=== PATIENT | male | born 1970 | race African-American/Black ===

== ENCOUNTER 2017-07-04 04:32 | Inpatient (IN) ==
[2017-07-04] MEDS ORDERED: LORazepam 2 MG/1 ML VIAL IV STA (05:12)
[2017-07-04] MEDS ORDERED: LORazepam 2 MG/1 ML VIAL ONE ×2 (05:15→12:28)
[2017-07-04] MEDS ORDERED: PROPOFOL 1,000 MG/100 ML BOTTLE IV ONE (05:19)
[2017-07-04] MEDS ORDERED: ETOMIDATE 20 MG/10 ML VIAL IV STA (05:23)
[2017-07-04] MEDS ORDERED: SUCCINYLCHOLINE 200 MG/10 ML VIAL IV STA ×2 (05:23→05:29)
[2017-07-04] MEDS ORDERED: SUCCINYLCHOLINE 200 MG/10 ML VIAL ONE (05:32)
[2017-07-04] MEDS ORDERED: ETOMIDATE 20 MG/10 ML VIAL IV ONE (05:32)
[2017-07-04] MEDS ORDERED: VECURONIUM 10 MG VIAL IV ONE (05:46)
[2017-07-04 05:52] LABS: ABG Base Excess -20.1 MMOL/L (-2.5-2.5); ABG HCO3 10.5 MMOL/L (20-26); ABG PCO2 37.7 MM HG (35-48); ABG TCO2 9.8 MMOL/L (23-27)
[2017-07-04 05:54] LABS: Basophils # 0.1 10*3/uL (0.0-0.2); Basophils % 0.8 % (0.0-0.8); Eosinophils # 0.2 10*3/uL (0.0-0.87); Eosinophils % 0.9 % (0.00-10.9); Hematocrit 47.2 VOL% (42.0-52.0); Hemoglobin 15.7 GM/DL (14.0-18.0); Immature Granulocytes % 7.2 %; Immature Granulocytes Absolute 1.23 #; Lymphocytes # 6.3 10*3/uL (1.4-4.0); Lymphocytes % 36.8 % (21.2-54.2); Mean Corpuscular HGB Conc 33.3 GM/DL (32-36); Mean Corpuscular Hemoglobin 30 PG (27-34); Mean Corpuscular Volume 89.1 FL (87-102); Monocytes # 0.3 10*3/uL (0.11-0.8); Monocytes % 1.5 % (1.7-12.7); Neutrophils % 52.8 % (38.7-73.9); Platelet Count 182 T/CUMM (130-400)
[2017-07-04 05:55] LABS: ABG PH 7.061 (7.35-7.45)
[2017-07-04] MEDS: PROPOFOL 1,000 MG/100 ML BOTTLE IV SCH ×2 (05:59→20:28)
[2017-07-04] MEDS ORDERED: PROPOFOL 1,000 MG/100 ML BOTTLE IV SCH ×2 (06:00→07:30)
[2017-07-04 06:05] LABS: Alanine Aminotransferase 142 U/L (16-61); Albumin 4.1 G/DL (3.4-5.0); Alkaline Phosphatase 155 U/L (45-117); Aspartate Amino Transferase 213 U/L (0-37); Bilirubin,Total < 0.39 MG/DL (0.2-1.0); Blood Urea Nitrogen 18 MG/DL (7-18); Calcium 8.9 MG/DL (8.5-10.1); Glucose 205 MG/DL (74-106); Osmolality,Calculated 275.2 MOS/KG (273-304); Sodium 134 MMOL/L (136-145); Total Protein 8.1 G/DL (6.4-8.3)
[2017-07-04 06:12] LABS: Potassium 6.1 MMOL/L (3.5-5.1)
[2017-07-04] MEDS ORDERED: DEXTROSE 50% 25 GM/50 ML VIAL IV STA (06:19)
[2017-07-04] MEDS ORDERED: SODIUM BICARBONATE 50 MEQ/50 ML VIAL IV STA (06:20)
[2017-07-04] MEDS ORDERED: INSULIN REGULAR 100 UNIT/ML IV STA (06:20)
[2017-07-04 06:22] LABS: Band Neutrophils 3 % (0-10); Eosinophils 2 % (0-10); Lymphocytes 34 % (20-55); Segmented Neutrophils 56 % (50-85); Total Cells Counted 100
[2017-07-04] MEDS ORDERED: SODIUM POLYSTYRENE SULFATE 15 GM/60 ML BOTTLE PO STA (06:22)
[2017-07-04 06:23] LABS: Burr Cells Slight; Giant Platelets Few; Hypochromasia Slight; Platelet Estimate Normal
[2017-07-04] MEDS ORDERED: SODIUM BICARBONATE 50 MEQ/50 ML SYRINGE IV ONE (06:35)
[2017-07-04] MEDS ORDERED: SODIUM POLYSTYRENE SULFATE 15 GM/60 ML BOTTLE ONE (06:35)
[2017-07-04] MEDS ORDERED: DEXTROSE 50% 25 GM/50 ML SYRINGE IV ONE (06:35)
[2017-07-04] MEDS ORDERED: INSULIN REGULAR 100 UNIT/ML ONE (06:38)
[2017-07-04] MEDS ORDERED: ALBUTEROL 2.5 MG/3 ML NEB RESP TX PRN (07:10)
[2017-07-04] MEDS ORDERED: SODIUM BICARBONATE 50 MEQ/50 ML VIAL IV ONE (07:23)
[2017-07-04] MEDS ORDERED: DEXTROSE 5% NACL 0.45% 1,000 ML IV SCH (07:30)
[2017-07-04 07:50] LABS: ABG HCO3 15.5 MMOL/L (20-26); ABG PCO2 40.4 MM HG (35-48); ABG TCO2 13.8 MMOL/L (23-27)
[2017-07-04 07:53] LABS: ABG PH 7.209 (7.35-7.45)
[2017-07-04] MEDS ORDERED: CALCIUM GLUCONATE 1,000 MG in SODIUM CHLORIDE 0.9% 50 ML IV ONE (08:00)
[2017-07-04 08:14] LABS: Lactic Acid 7.6 MMOL/L (0.4-2.0)
[2017-07-04 08:16] LABS: Amorphous Crystals,Urine Occasional /HPF (Few); Apearance,Urine Slightly Hazy (Clear); Bacteria,Urine Occasional /HPF (Few); Bilirubin,Urine Negative (Negative); Blood, Urine Large mg/dL (Negative); Glucose,Urine (UA) 50 mg/dL (Negative); Hyaline Casts,Urine 2 /LPF (0-3); Ketones,Urine Negative (Negative); Mucus,Urine Occasional /LPF (Occasional); Nitrite,Urine Negative (Negative); Protein,Urine 100 MG/DL; RBC,Urine 10 /HPF (0-4); Squamous Epithelial Cell,Urine Occasional /HPF (0-10); Urine Color Amber (Yellow); Urine Specific Gravity 1.009 (1.001-1.035); Urine Urobilinogen < 2.0 EU/DL (0.2-1.0); WBC,Urine 16 /HPF (0-6)
[2017-07-04] MEDS: ENOXAPARIN 40 MG/0.4 ML SYRINGE SUBCUT SCH (08:17)
[2017-07-04] MEDS: FAMOTIDINE 20 MG/2 ML VIAL IV SCH ×2 (08:17→20:11)
[2017-07-04 08:36] LABS: Barbiturates Screen,Urine Negative (Negative); Benzodiazepines Screen,Urine Negative (Negative); Cannabinoid Screen,Urine Positive (Negative); Opiate Screen,Urine Negative (Negative); Phencyclidine Screen,Urine Negative (Negative)
[2017-07-04] MEDS: LORazepam INJ 40 MG in DEXTROSE 5% 30 ML IV SCH (08:50)
[2017-07-04] MEDS ORDERED: SODIUM CHLORIDE 0.9% 1,650 ML IV ONE (11:12)
[2017-07-04 11:39] LABS: Albumin 3.9 G/DL (3.4-5.0); Bilirubin,Total 0.6 MG/DL (0.2-1.0); Calcium 7.2 MG/DL (8.5-10.1); Osmolality,Calculated 284.4 MOS/KG (273-304); Potassium 4.7 MMOL/L (3.5-5.1); Total Protein 7.7 G/DL (6.4-8.3)
[2017-07-04] MEDS: VALPROIC ACID INJ 1,000 MG in SODIUM CHLORIDE 0.9% 100 ML IV SCH (12:16)
[2017-07-04] MEDS ORDERED: LORazepam 2 MG/1 ML VIAL IV ONE (12:25)
[2017-07-04] MEDS: ALBUTEROL/IPRATROPIUM 3 ML NEB RESP TX SCH ×2 (12:32→20:17)
[2017-07-04] MEDS: PIPERACILLIN/TAZOBACTAM 3,375 MG in SODIUM CHLORIDE 0.9% 100 ML IV SCH ×2 (13:48→20:15)
[2017-07-04] MEDS: SODIUM BICARB INJ 100 MEQ in DEXTROSE 5% 1,000 ML IV SCH (15:10)
[2017-07-04 15:52] LABS: ABG HCO3 13.3 MMOL/L (20-26); ABG Oxygen Saturation 99.5 % (95-100); ABG PCO2 33.1 MM HG (35-48); ABG PH 7.223 (7.35-7.45); ABG PO2 364.3 MM HG (80-95); ABG TCO2 14.4 MMOL/L (23-27); Allen Test Positive; Pt O2 Delivery Device Ventilator
[2017-07-04 17:24] LABS: Basophils % 0.2 % (0.0-0.8); Eosinophils % 0.1 % (0.00-10.9); Hematocrit 48.4 VOL% (42.0-52.0); Hemoglobin 17.3 GM/DL (14.0-18.0); Immature Granulocytes % 0.5 %; Immature Granulocytes Absolute 0.08 #; Lymphocytes # 1.9 10*3/uL (1.4-4.0); Lymphocytes % 11.5 % (21.2-54.2); Mean Corpuscular HGB Conc 35.7 GM/DL (32-36); Mean Corpuscular Hemoglobin 30 PG (27-34); Mean Corpuscular Volume 83.2 FL (87-102); Mean Platelet Volume 10.8 FL (9.6-12.0); Monocytes % 5.9 % (1.7-12.7); Neutrophils # 13.5 10*3/uL (1.4-7.4); Neutrophils % 81.8 % (38.7-73.9); Platelet Count 163 T/CUMM (130-400); Red Blood Count 5.82 MC/CUMM (3.8-5.5); Red Cell Distribution Width 14.3 % (9.3-17.3); White Blood Count 16.5 T/CUMM (4-12)
[2017-07-04 17:44] LABS: Band Neutrophils 8 % (0-10); Lymphocytes 18 % (20-55); Platelet Estimate Adequate; Segmented Neutrophils 69 % (50-85); Total Cells Counted 100
[2017-07-04 17:45] LABS: Burr Cells Slight; Poikilocytosis Slight
[2017-07-04] MEDS ORDERED: DEXTROSE 50% 25 GM/50 ML VIAL IV PRN (20:04)
[2017-07-04] MEDS ORDERED: GLUCAGON 1 MG VIAL IM PRN (20:04)
[2017-07-04] MEDS ORDERED: SODIUM CHLORIDE 0.9% 500 ML IV ONE (22:25)
[2017-07-05] MEDS: INSULIN REGULAR 100 UNIT/ML SUBCUT SCH ×4 (00:23→17:36)
[2017-07-05] MEDS: VALPROIC ACID INJ 1,000 MG in SODIUM CHLORIDE 0.9% 100 ML IV SCH ×2 (00:24→12:26)
[2017-07-05] MEDS: ALBUTEROL/IPRATROPIUM 3 ML NEB RESP TX SCH ×4 (00:35→19:48)
[2017-07-05] MEDS: SODIUM BICARB INJ 100 MEQ in DEXTROSE 5% 1,000 ML IV SCH (02:03)
[2017-07-05 03:25] LABS: ABG Base Excess -10.2 MMOL/L (-2.5-2.5); ABG HCO3 13.3 MMOL/L (20-26); ABG Oxygen Saturation 98.8 % (95-100); ABG PCO2 24.6 MM HG (35-48); ABG PO2 141.1 MM HG (80-95); Allen Test Positive; Pt O2 Delivery Device Ventilator
[2017-07-05] MEDS: PIPERACILLIN/TAZOBACTAM 3,375 MG in SODIUM CHLORIDE 0.9% 100 ML IV SCH ×3 (04:02→22:03)
[2017-07-05 04:36] LABS: Basophils # 0.1 10*3/uL (0.0-0.2); Basophils % 0.5 % (0.0-0.8); Eosinophils % 0.1 % (0.00-10.9); Hematocrit 42.6 VOL% (42.0-52.0); Hemoglobin 15.5 GM/DL (14.0-18.0); Immature Granulocytes % 0.2 %; Immature Granulocytes Absolute 0.03 #; Lymphocytes # 1.5 10*3/uL (1.4-4.0); Lymphocytes % 10.3 % (21.2-54.2); Mean Corpuscular HGB Conc 36.4 GM/DL (32-36); Mean Corpuscular Hemoglobin 30 PG (27-34); Mean Corpuscular Volume 82.6 FL (87-102); Mean Platelet Volume 11.3 FL (9.6-12.0); Monocytes # 1.1 10*3/uL (0.11-0.8); Monocytes % 7.4 % (1.7-12.7); Neutrophils # 11.5 10*3/uL (1.4-7.4); Neutrophils % 81.5 % (38.7-73.9); Platelet Count 145 T/CUMM (130-400); Red Blood Count 5.16 MC/CUMM (3.8-5.5); Red Cell Distribution Width 14.4 % (9.3-17.3); White Blood Count 14.1 T/CUMM (4-12)
[2017-07-05 04:54] LABS: Lactic Acid 5.6 MMOL/L (0.4-2.0)
[2017-07-05 07:02] LABS: Hepatitis A Ab IgM Quant 0.12 Index; Hepatitis A Ab IgM Result Negative (Negative); Hepatitis B Core IgM Quant 0.15 Index; Hepatitis B Core IgM Result Negative (Negative); Hepatitis B Surface Ag Quant 0.78 Index; Hepatitis B Surface Ag Result Negative (Negative); Hepatitis C Virus Ab Result Negative (Negative)
[2017-07-05] MEDS: ENOXAPARIN 40 MG/0.4 ML SYRINGE SUBCUT SCH (08:50)
[2017-07-05] MEDS: FAMOTIDINE 20 MG/2 ML VIAL IV SCH (08:50)
[2017-07-05 10:11] LABS: Albumin 2.4 G/DL (3.4-5.0); Bilirubin,Total 0.8 MG/DL (0.2-1.0); Calcium 6.1 MG/DL (8.5-10.1); Magnesium 2.6 MG/DL (1.8-2.4); Osmolality,Calculated 291.4 MOS/KG (273-304); Potassium 5.7 MMOL/L (3.5-5.1)
[2017-07-05] MEDS ORDERED: SODIUM POLYSTYRENE SULFATE 15 GM/60 ML BOTTLE PER TUBE PRN (12:00)
[2017-07-05] MEDS: SODIUM BICARB INJ 150 MEQ in DEXTROSE 5% 1,000 ML IV SCH (13:33)
[2017-07-05 14:14] LABS: INR 1.4; PT Patient Result 14.3 SECS
[2017-07-05 14:36] LABS: Acetaminophen 7.1 UG/ML (10-30); Salicylate < 2.8 MG/DL (2.8-20)
[2017-07-05] MEDS: PANTOPRAZOLE 40 MG VIAL IV SCH (22:03)
[2017-07-06] MEDS: VALPROIC ACID INJ 1,000 MG in SODIUM CHLORIDE 0.9% 100 ML IV SCH ×2 (01:14→12:32)
[2017-07-06] MEDS: INSULIN REGULAR 100 UNIT/ML SUBCUT SCH ×5 (01:14→23:55)
[2017-07-06] MEDS: ALBUTEROL/IPRATROPIUM 3 ML NEB RESP TX SCH ×4 (01:15→19:25)
[2017-07-06] MEDS: SODIUM BICARB INJ 150 MEQ in DEXTROSE 5% 1,000 ML IV SCH ×2 (02:01→13:41)
[2017-07-06] MEDS: LORazepam INJ 40 MG in DEXTROSE 5% 30 ML IV SCH ×2 (02:05→11:47)
[2017-07-06 03:31] LABS: ABG Base Excess -3.3 MMOL/L (-2.5-2.5); ABG HCO3 19.8 MMOL/L (20-26); ABG PH 7.437 (7.35-7.45); ABG PO2 235.5 MM HG (80-95); ABG TCO2 20.7 MMOL/L (23-27); Allen Test Positive; Pt O2 Delivery Device Ventilator
[2017-07-06 04:05] LABS: Basophils % 0.3 % (0.0-0.8); Eosinophils % 0.1 % (0.00-10.9); Hematocrit 32.6 VOL% (42.0-52.0); Hemoglobin 12.1 GM/DL (14.0-18.0); Immature Granulocytes % 0.9 %; Lymphocytes # 0.8 10*3/uL (1.4-4.0); Lymphocytes % 7.7 % (21.2-54.2); Mean Corpuscular HGB Conc 37.1 GM/DL (32-36); Mean Corpuscular Hemoglobin 30 PG (27-34); Mean Corpuscular Volume 80.1 FL (87-102); Mean Platelet Volume 10.7 FL (9.6-12.0); Monocytes # 0.8 10*3/uL (0.11-0.8); Monocytes % 7.2 % (1.7-12.7); Neutrophils % 83.8 % (38.7-73.9); Platelet Count 102 T/CUMM (130-400); Red Blood Count 4.07 MC/CUMM (3.8-5.5); Red Cell Distribution Width 13.7 % (9.3-17.3); White Blood Count 10.8 T/CUMM (4-12)
[2017-07-06 04:50] LABS: Alanine Aminotransferase 724 U/L (16-61); Alkaline Phosphatase 74 U/L (45-117); Aspartate Amino Transferase 2280 U/L (0-37); Bilirubin,Indirect 0.3 MG/DL (0.0-1.0); Bilirubin,Total < 0.39 MG/DL (0.2-1.0); Total Protein 4.4 G/DL (6.4-8.3)
[2017-07-06 04:51] LABS: Band Neutrophils 31 % (0-10); Hypochromasia 2+; Lymphocytes 10 % (20-55); Metamyelocytes 4 %; Myelocytes 2 %; Platelet Estimate Decreased; Segmented Neutrophils 44 % (50-85); Total Cells Counted 100
[2017-07-06 05:09] LABS: Bilirubin,Total 0.4 MG/DL (0.2-1.0); Magnesium 2.2 MG/DL (1.8-2.4); Osmolality,Calculated 295.5 MOS/KG (273-304); Potassium 4.6 MMOL/L (3.5-5.1); Total Protein 4.5 G/DL (6.4-8.3)
[2017-07-06 05:11] LABS: Calcium 5.5 MG/DL (8.5-10.1)
[2017-07-06 05:53] LABS: INR 1.3; PT Patient Result 13.9 SECS
[2017-07-06 05:56] LABS: Lactic Acid 5.8 MMOL/L (0.4-2.0)
[2017-07-06] MEDS: PROPOFOL 1,000 MG/100 ML BOTTLE IV SCH ×2 (06:21→06:22)
[2017-07-06] MEDS: PIPERACILLIN/TAZOBACTAM 3,375 MG in SODIUM CHLORIDE 0.9% 100 ML IV SCH ×3 (06:28→23:39)
[2017-07-06] MEDS: PANTOPRAZOLE 40 MG VIAL IV SCH ×2 (08:47→20:07)
[2017-07-06] MEDS: ENOXAPARIN 40 MG/0.4 ML SYRINGE SUBCUT SCH (08:47)
[2017-07-06] MEDS ORDERED: CALCIUM GLUCONATE 2,000 MG in SODIUM CHLORIDE 0.9% 100 ML IV ONE (10:00)
[2017-07-06 11:06] LABS: Amorphous Crystals,Urine Occasional /HPF (Few); Apearance,Urine CLOUDY (Clear); Bilirubin,Urine Negative (Negative); Blood, Urine Large mg/dL (Negative); Glucose,Urine (UA) 50 mg/dL (Negative); Ketones,Urine Negative (Negative); Mucus,Urine Occasional /LPF (Occasional); Nitrite,Urine Negative (Negative); Protein,Urine 100 MG/DL; RBC,Urine 583 /HPF (0-4); Urine Color Red (Yellow); Urine Specific Gravity 1.012 (1.001-1.035); Urine Urobilinogen < 2.0 EU/DL (0.2-1.0); WBC,Urine 6 /HPF (0-6)
[2017-07-06] MEDS ORDERED: SODIUM CHLORIDE 0.9% 1,000 ML IV ONE ×2 (13:44→15:05)
[2017-07-06] MEDS: levETIRAcetam INJ 500 MG in SODIUM CHLORIDE 0.9% 50 ML IV SCH ×2 (15:10→23:37)
[2017-07-07] MEDS: ALBUTEROL/IPRATROPIUM 3 ML NEB RESP TX SCH ×4 (00:39→19:39)
[2017-07-07] MEDS: SODIUM BICARB INJ 150 MEQ in DEXTROSE 5% 1,000 ML IV SCH ×3 (01:21→22:49)
[2017-07-07 03:41] LABS: Allen Test Positive; Pt O2 Delivery Device Ventilator
[2017-07-07 03:42] LABS: ABG Base Excess 2.7 MMOL/L (-2.5-2.5); ABG Oxygen Saturation 98.6 % (95-100); ABG PCO2 35.2 MM HG (35-48); ABG PH 7.486 (7.35-7.45); ABG TCO2 27.1 MMOL/L (23-27)
[2017-07-07 05:38] LABS: Basophils % 0.4 % (0.0-0.8); Eosinophils # 0.1 10*3/uL (0.0-0.87); Eosinophils % 0.5 % (0.00-10.9); Hematocrit 25.4 VOL% (42.0-52.0); Hemoglobin 9.5 GM/DL (14.0-18.0); Immature Granulocytes % 0.7 %; Immature Granulocytes Absolute 0.08 #; Lymphocytes # 0.8 10*3/uL (1.4-4.0); Lymphocytes % 6.8 % (21.2-54.2); Mean Corpuscular HGB Conc 37.4 GM/DL (32-36); Mean Corpuscular Hemoglobin 30 PG (27-34); Mean Corpuscular Volume 79.4 FL (87-102); Mean Platelet Volume 11.7 FL (9.6-12.0); Monocytes # 0.8 10*3/uL (0.11-0.8); Neutrophils # 9.4 10*3/uL (1.4-7.4); Neutrophils % 84.6 % (38.7-73.9); Platelet Count 73 T/CUMM (130-400); Red Cell Distribution Width 13.3 % (9.3-17.3); White Blood Count 11.1 T/CUMM (4-12)
[2017-07-07 05:53] LABS: Lactic Acid 3.9 MMOL/L (0.4-2.0)
[2017-07-07] MEDS ORDERED: ceFAZolin 2,000 MG in PREMIX 1 EACH IV ONE (06:00)
[2017-07-07 06:15] LABS: Albumin 1.8 G/DL (3.4-5.0); Bilirubin,Total 0.6 MG/DL (0.2-1.0); Osmolality,Calculated 302.1 MOS/KG (273-304); Potassium 3.9 MMOL/L (3.5-5.1); Total Protein 3.9 G/DL (6.4-8.3)
[2017-07-07 06:19] LABS: Calcium 5.3 MG/DL (8.5-10.1)
[2017-07-07 06:35] LABS: Band Neutrophils 40 % (0-10); Hypochromasia Slight; Lymphocytes 12 % (20-55); Myelocytes 1 %; Platelet Estimate Decreased; Segmented Neutrophils 43 % (50-85); Total Cells Counted 100
[2017-07-07] MEDS: INSULIN REGULAR 100 UNIT/ML SUBCUT SCH ×3 (07:19→18:07)
[2017-07-07] MEDS: levETIRAcetam INJ 500 MG in SODIUM CHLORIDE 0.9% 50 ML IV SCH ×3 (07:27→22:23)
[2017-07-07] MEDS: PROPOFOL 1,000 MG/100 ML BOTTLE IV SCH ×2 (08:49→09:16)
[2017-07-07] MEDS: PANTOPRAZOLE 40 MG VIAL IV SCH ×2 (08:50→22:23)
[2017-07-07] MEDS: ENOXAPARIN 30 MG/0.3 ML SYRINGE SUBCUT SCH (08:55)
[2017-07-07] MEDS ORDERED: HEPARIN 1,000 UNIT/1 ML VIAL ONE (11:22)
[2017-07-07] MEDS: PIPERACILLIN/TAZOBACTAM 3,375 MG in SODIUM CHLORIDE 0.9% 100 ML IV SCH (11:30)
[2017-07-07] MEDS ORDERED: MIDAZOLAM 2 MG/2 ML VIAL ONE (13:04)
[2017-07-07] MEDS ORDERED: SEVOFLURANE 1 UNIT/15 MINUTE INH ONE (13:04)
[2017-07-07] MEDS ORDERED: HEPARIN 10,000 UNIT/10 ML VIAL IV SCH (15:30)
[2017-07-08] MEDS: PIPERACILLIN/TAZOBACTAM 3,375 MG in SODIUM CHLORIDE 0.9% 100 ML IV SCH ×2 (00:10→13:17)
[2017-07-08] MEDS: ALBUTEROL/IPRATROPIUM 3 ML NEB RESP TX SCH ×4 (00:35→19:15)
[2017-07-08] MEDS: PROPOFOL 1,000 MG/100 ML BOTTLE IV SCH (03:01)
[2017-07-08 04:42] LABS: Basophils % 0.2 % (0.0-0.8); Eosinophils % 0.4 % (0.00-10.9); Hematocrit 23.2 VOL% (42.0-52.0); Hemoglobin 8.5 GM/DL (14.0-18.0); Immature Granulocytes % 0.4 %; Immature Granulocytes Absolute 0.05 #; Lymphocytes # 0.6 10*3/uL (1.4-4.0); Lymphocytes % 5.5 % (21.2-54.2); Mean Corpuscular HGB Conc 36.6 GM/DL (32-36); Mean Corpuscular Hemoglobin 29 PG (27-34); Mean Corpuscular Volume 80.3 FL (87-102); Mean Platelet Volume 10.9 FL (9.6-12.0); Monocytes # 0.5 10*3/uL (0.11-0.8); Monocytes % 4.7 % (1.7-12.7); Neutrophils # 10.1 10*3/uL (1.4-7.4); Neutrophils % 88.8 % (38.7-73.9); Red Blood Count 2.89 MC/CUMM (3.8-5.5); Red Cell Distribution Width 13.4 % (9.3-17.3); White Blood Count 11.3 T/CUMM (4-12)
[2017-07-08 04:57] LABS: Platelet Count 60 T/CUMM (130-400)
[2017-07-08 05:23] LABS: Lactic Acid 2.8 MMOL/L (0.4-2.0)
[2017-07-08 05:37] LABS: Albumin 1.7 G/DL (3.4-5.0); Bilirubin,Total 0.6 MG/DL (0.2-1.0); Osmolality,Calculated 293.5 MOS/KG (273-304); Potassium 3.2 MMOL/L (3.5-5.1); Total Protein 4.1 G/DL (6.4-8.3)
[2017-07-08 05:40] LABS: Magnesium 2.1 MG/DL (1.8-2.4); Prealbumin 11.9 MG/DL (20-40)
[2017-07-08 05:48] LABS: Band Neutrophils 3 % (0-10); Eosinophils 2 % (0-10); Lymphocytes 6 % (20-55); Segmented Neutrophils 85 % (50-85); Total Cells Counted 100
[2017-07-08 05:49] LABS: Hypochromasia 1+; Microcytosis Slight; Platelet Estimate Decreased
[2017-07-08] MEDS ORDERED: SODIUM CHLORIDE 0.9% 250 ML IV PRN (06:16)
[2017-07-08 06:24] LABS: Calcium 5.5 MG/DL (8.5-10.1)
[2017-07-08] MEDS: INSULIN REGULAR 100 UNIT/ML SUBCUT SCH ×4 (06:40→19:36)
[2017-07-08 10:06] LABS: % Iron Saturation 23.1 % (18-50); Ferritin 365.7 ng/ml (26-388)
[2017-07-08] MEDS: levETIRAcetam INJ 500 MG in SODIUM CHLORIDE 0.9% 50 ML IV SCH ×2 (10:32→19:34)
[2017-07-08] MEDS: ENOXAPARIN 30 MG/0.3 ML SYRINGE SUBCUT SCH (10:32)
[2017-07-08] MEDS: PANTOPRAZOLE 40 MG VIAL IV SCH ×2 (10:33→22:08)
[2017-07-08] MEDS: SODIUM BICARB INJ 150 MEQ in DEXTROSE 5% 1,000 ML IV SCH (10:52)
[2017-07-08] MEDS ORDERED: LEVOFLOXACIN INJ 750 MG in PREMIX 1 EACH IV ONE (21:30)
[2017-07-09] MEDS: ALBUTEROL/IPRATROPIUM 3 ML NEB RESP TX SCH ×4 (00:53→19:48)
[2017-07-09] MEDS: levETIRAcetam INJ 500 MG in SODIUM CHLORIDE 0.9% 50 ML IV SCH ×3 (01:38→17:44)
[2017-07-09] MEDS: INSULIN REGULAR 100 UNIT/ML SUBCUT SCH ×5 (01:38→23:34)
[2017-07-09] MEDS: PIPERACILLIN/TAZOBACTAM 3,375 MG in SODIUM CHLORIDE 0.9% 100 ML IV SCH ×3 (01:39→23:31)
[2017-07-09 06:47] LABS: Basophils % 0.3 % (0.0-0.8); Eosinophils # 0.1 10*3/uL (0.0-0.87); Eosinophils % 0.8 % (0.00-10.9); Hematocrit 21.5 VOL% (42.0-52.0); Immature Granulocytes % 0.8 %; Immature Granulocytes Absolute 0.09 #; Lymphocytes # 0.6 10*3/uL (1.4-4.0); Lymphocytes % 5.3 % (21.2-54.2); Mean Corpuscular HGB Conc 36.7 GM/DL (32-36); Mean Corpuscular Hemoglobin 30 PG (27-34); Mean Corpuscular Volume 81.4 FL (87-102); Mean Platelet Volume 11.7 FL (9.6-12.0); Monocytes # 0.9 10*3/uL (0.11-0.8); Monocytes % 7.4 % (1.7-12.7); Neutrophils # 10.2 10*3/uL (1.4-7.4); Neutrophils % 85.4 % (38.7-73.9); Red Blood Count 2.64 MC/CUMM (3.8-5.5); Red Cell Distribution Width 13.3 % (9.3-17.3); White Blood Count 11.9 T/CUMM (4-12)
[2017-07-09 06:49] LABS: Hemoglobin 7.9 GM/DL (14.0-18.0); Platelet Count 60 T/CUMM (130-400)
[2017-07-09 07:03] LABS: Apearance,Urine CLOUDY (Clear); Bilirubin,Urine Negative (Negative); Blood, Urine Large mg/dL (Negative); Glucose,Urine (UA) 50 mg/dL (Negative); Ketones,Urine Negative (Negative); Nitrite,Urine Negative (Negative); Protein,Urine 100 MG/DL; RBC,Urine 2168 /HPF (0-4); Squamous Epithelial Cell,Urine Occasional /HPF (0-10); Urine Color Amber (Yellow); Urine Specific Gravity 1.009 (1.001-1.035); Urine Urobilinogen < 2.0 EU/DL (0.2-1.0); WBC,Urine 24 /HPF (0-6)
[2017-07-09 07:10] LABS: Lactic Acid 1.3 MMOL/L (0.4-2.0)
[2017-07-09 07:11] LABS: Anisocytosis 1+; Microcytosis 1+; Platelet Estimate Decreased
[2017-07-09] MEDS: PANTOPRAZOLE 40 MG VIAL IV SCH ×2 (08:41→20:21)
[2017-07-09] MEDS: ENOXAPARIN 30 MG/0.3 ML SYRINGE SUBCUT SCH (08:41)
[2017-07-09 08:59] LABS: Calcium 6.8 MG/DL (8.5-10.1); Osmolality,Calculated 284.8 MOS/KG (273-304); Potassium 3.3 MMOL/L (3.5-5.1)
[2017-07-10] MEDS: ALBUTEROL/IPRATROPIUM 3 ML NEB RESP TX SCH ×4 (00:59→20:00)
[2017-07-10] MEDS: levETIRAcetam INJ 500 MG in SODIUM CHLORIDE 0.9% 50 ML IV SCH (02:26)
[2017-07-10 06:14] LABS: Basophils % 0.3 % (0.0-0.8); Eosinophils # 0.2 10*3/uL (0.0-0.87); Eosinophils % 1.7 % (0.00-10.9); Hematocrit 22.5 VOL% (42.0-52.0); Hemoglobin 8.3 GM/DL (14.0-18.0); Immature Granulocytes % 1.4 %; Immature Granulocytes Absolute 0.17 #; Lymphocytes # 1.2 10*3/uL (1.4-4.0); Lymphocytes % 10.5 % (21.2-54.2); Mean Corpuscular HGB Conc 36.9 GM/DL (32-36); Mean Corpuscular Hemoglobin 30 PG (27-34); Mean Corpuscular Volume 80.9 FL (87-102); Mean Platelet Volume 11.5 FL (9.6-12.0); Monocytes # 0.9 10*3/uL (0.11-0.8); Neutrophils # 9.2 10*3/uL (1.4-7.4); Neutrophils % 78.1 % (38.7-73.9); Platelet Count 78 T/CUMM (130-400); Red Blood Count 2.78 MC/CUMM (3.8-5.5); White Blood Count 11.8 T/CUMM (4-12)
[2017-07-10] MEDS: INSULIN REGULAR 100 UNIT/ML SUBCUT SCH ×3 (06:39→18:54)
[2017-07-10 06:41] LABS: Giant Platelets Few; Hypochromasia 1+; Platelet Estimate Decreased
[2017-07-10 06:42] LABS: Microcytosis 1+
[2017-07-10 06:55] LABS: Albumin 1.7 G/DL (3.4-5.0); Bilirubin,Direct 0.16 MG/DL (0.0-0.20); Bilirubin,Indirect 0.3 MG/DL (0.0-1.0); Bilirubin,Total 0.5 MG/DL (0.2-1.0); Total Protein 4.3 G/DL (6.4-8.3)
[2017-07-10] MEDS: ENOXAPARIN 30 MG/0.3 ML SYRINGE SUBCUT SCH (08:54)
[2017-07-10] MEDS: PANTOPRAZOLE 40 MG VIAL IV SCH ×2 (08:59→21:00)
[2017-07-10] MEDS: PIPERACILLIN/TAZOBACTAM 3,375 MG in SODIUM CHLORIDE 0.9% 100 ML IV SCH (15:48)
[2017-07-10] MEDS: ONDANSETRON 4 MG/2 ML VIAL IV PRN (21:00)
[2017-07-10] MEDS ORDERED: LEVOFLOXACIN INJ 500 MG in PREMIX 1 EACH IV SCH (21:00)
[2017-07-10] MEDS: levETIRAcetam 500 MG TABLET PO SCH (21:01)
[2017-07-11] MEDS: INSULIN REGULAR 100 UNIT/ML SUBCUT SCH ×4 (00:03→18:49)
[2017-07-11] MEDS: ALBUTEROL/IPRATROPIUM 3 ML NEB RESP TX SCH ×4 (00:19→19:05)
[2017-07-11 06:05] LABS: Basophils # 0.1 10*3/uL (0.0-0.2); Basophils % 0.4 % (0.0-0.8); Eosinophils # 0.2 10*3/uL (0.0-0.87); Eosinophils % 1.6 % (0.00-10.9); Hematocrit 29.4 VOL% (42.0-52.0); Hemoglobin 10.7 GM/DL (14.0-18.0); Immature Granulocytes % 0.8 %; Immature Granulocytes Absolute 0.09 #; Lymphocytes # 1.2 10*3/uL (1.4-4.0); Lymphocytes % 10.9 % (21.2-54.2); Mean Corpuscular HGB Conc 36.4 GM/DL (32-36); Mean Corpuscular Hemoglobin 29 PG (27-34); Mean Corpuscular Volume 80.3 FL (87-102); Monocytes # 1.2 10*3/uL (0.11-0.8); Monocytes % 10.8 % (1.7-12.7); Neutrophils # 8.4 10*3/uL (1.4-7.4); Neutrophils % 75.5 % (38.7-73.9); Platelet Count 107 T/CUMM (130-400); Red Blood Count 3.66 MC/CUMM (3.8-5.5); White Blood Count 11.2 T/CUMM (4-12)
[2017-07-11 06:40] LABS: Band Neutrophils 1 % (0-10); Eosinophils 5 % (0-10); Lymphocytes 11 % (20-55); Segmented Neutrophils 69 % (50-85); Total Cells Counted 100
[2017-07-11 06:41] LABS: Giant Platelets Few; Hypochromasia 1+; Microcytosis Slight; Ovalocytes Slight; Platelet Estimate Decreased
[2017-07-11 07:26] LABS: Albumin 1.8 G/DL (3.4-5.0); Bilirubin,Direct 0.15 MG/DL (0.0-0.20); Bilirubin,Indirect 0.4 MG/DL (0.0-1.0); Bilirubin,Total 0.5 MG/DL (0.2-1.0); Calcium 7.9 MG/DL (8.5-10.1); Magnesium 1.8 MG/DL (1.8-2.4); Osmolality,Calculated 284.8 MOS/KG (273-304); Potassium 3.3 MMOL/L (3.5-5.1); Total Protein 4.5 G/DL (6.4-8.3)
[2017-07-11] MEDS: levETIRAcetam 500 MG TABLET PO SCH ×2 (10:05→21:09)
[2017-07-11] MEDS: PANTOPRAZOLE 40 MG VIAL IV SCH ×2 (10:05→21:09)
[2017-07-11] MEDS: ENOXAPARIN 30 MG/0.3 ML SYRINGE SUBCUT SCH (10:05)
[2017-07-11] MEDS: PIPERACILLIN/TAZOBACTAM 3,375 MG in SODIUM CHLORIDE 0.9% 100 ML IV SCH (10:11)
[2017-07-12] MEDS: ALBUTEROL/IPRATROPIUM 3 ML NEB RESP TX SCH ×4 (00:20→19:37)
[2017-07-12] MEDS: INSULIN REGULAR 100 UNIT/ML SUBCUT SCH ×4 (01:58→19:43)
[2017-07-12 05:39] LABS: Basophils % 0.3 % (0.0-0.8); Eosinophils # 0.2 10*3/uL (0.0-0.87); Eosinophils % 1.1 % (0.00-10.9); Hematocrit 26.7 VOL% (42.0-52.0); Hemoglobin 9.5 GM/DL (14.0-18.0); Immature Granulocytes % 0.9 %; Immature Granulocytes Absolute 0.13 #; Lymphocytes # 1.5 10*3/uL (1.4-4.0); Lymphocytes % 10.6 % (21.2-54.2); Mean Corpuscular HGB Conc 35.6 GM/DL (32-36); Mean Corpuscular Hemoglobin 29 PG (27-34); Mean Corpuscular Volume 80.9 FL (87-102); Mean Platelet Volume 10.3 FL (9.6-12.0); Monocytes # 1.5 10*3/uL (0.11-0.8); Monocytes % 10.6 % (1.7-12.7); Neutrophils # 10.5 10*3/uL (1.4-7.4); Neutrophils % 76.5 % (38.7-73.9); Platelet Count 142 T/CUMM (130-400); Red Cell Distribution Width 12.9 % (9.3-17.3); White Blood Count 13.8 T/CUMM (4-12)
[2017-07-12 05:58] LABS: Hypochromasia 1+; Microcytosis Slight; Platelet Estimate Normal
[2017-07-12 06:18] LABS: Calcium 8.3 MG/DL (8.5-10.1); Magnesium 1.7 MG/DL (1.8-2.4); Osmolality,Calculated 292.8 MOS/KG (273-304); Potassium 3.4 MMOL/L (3.5-5.1)
[2017-07-12 06:43] LABS: Albumin 1.7 G/DL (3.4-5.0); Bilirubin,Direct 0.14 MG/DL (0.0-0.20); Bilirubin,Indirect 0.6 MG/DL (0.0-1.0); Bilirubin,Total 0.7 MG/DL (0.2-1.0); Total Protein 4.1 G/DL (6.4-8.3)
[2017-07-12] MEDS: PANTOPRAZOLE 40 MG VIAL IV SCH ×2 (08:31→22:20)
[2017-07-12] MEDS: levETIRAcetam 500 MG TABLET PO SCH ×2 (08:32→22:15)
[2017-07-12] MEDS ORDERED: HYDROCORTISONE 2.5% RECTAL CREAM 30 GM TUBE TOP PRN (08:41)
[2017-07-12] MEDS ORDERED: WITCH HAZEL PADS 100/JAR TOP PRN (08:59)
[2017-07-12] MEDS: ENOXAPARIN 30 MG/0.3 ML SYRINGE SUBCUT SCH (09:02)
[2017-07-12] MEDS: traZODone 50 MG TABLET PO SCH (22:16)
[2017-07-13] MEDS: ALBUTEROL/IPRATROPIUM 3 ML NEB RESP TX SCH ×4 (00:38→19:29)
[2017-07-13] MEDS: INSULIN REGULAR 100 UNIT/ML SUBCUT SCH ×3 (02:09→12:11)
[2017-07-13 06:22] LABS: Basophils % 0.2 % (0.0-0.8); Eosinophils # 0.2 10*3/uL (0.0-0.87); Eosinophils % 1.2 % (0.00-10.9); Hematocrit 25.2 VOL% (42.0-52.0); Hemoglobin 8.9 GM/DL (14.0-18.0); Immature Granulocytes % 1.4 %; Immature Granulocytes Absolute 0.19 #; Lymphocytes # 1.7 10*3/uL (1.4-4.0); Lymphocytes % 12.3 % (21.2-54.2); Mean Corpuscular HGB Conc 35.3 GM/DL (32-36); Mean Corpuscular Hemoglobin 29 PG (27-34); Mean Corpuscular Volume 80.8 FL (87-102); Mean Platelet Volume 9.9 FL (9.6-12.0); Monocytes # 1.9 10*3/uL (0.11-0.8); Monocytes % 13.9 % (1.7-12.7); Neutrophils # 9.9 10*3/uL (1.4-7.4); Platelet Count 190 T/CUMM (130-400); Red Blood Count 3.12 MC/CUMM (3.8-5.5); Red Cell Distribution Width 13.2 % (9.3-17.3); White Blood Count 13.9 T/CUMM (4-12)
[2017-07-13 07:04] LABS: Eosinophils 1 % (0-10); Hypochromasia 1+; Lymphocytes 11 % (20-55); Microcytosis Slight; Platelet Estimate Normal; Segmented Neutrophils 77 % (50-85); Total Cells Counted 100
[2017-07-13 07:06] LABS: Albumin 1.9 G/DL (3.4-5.0); Bilirubin,Direct 0.15 MG/DL (0.0-0.20); Bilirubin,Indirect 0.7 MG/DL (0.0-1.0); Bilirubin,Total 0.8 MG/DL (0.2-1.0); Calcium 8.3 MG/DL (8.5-10.1); Magnesium 2.2 MG/DL (1.8-2.4); Potassium 3.5 MMOL/L (3.5-5.1); Total Protein 4.7 G/DL (6.4-8.3)
[2017-07-13] MEDS: levETIRAcetam 500 MG TABLET PO SCH (08:39)
[2017-07-13] MEDS: ENOXAPARIN 30 MG/0.3 ML SYRINGE SUBCUT SCH (08:39)
[2017-07-13] MEDS: PANTOPRAZOLE 40 MG VIAL IV SCH ×2 (08:40→21:28)
[2017-07-13] MEDS: traZODone 50 MG TABLET PO SCH (21:28)
[2017-07-14] MEDS: ALBUTEROL/IPRATROPIUM 3 ML NEB RESP TX SCH ×4 (01:06→19:41)
[2017-07-14 07:38] LABS: Basophils % 0.2 % (0.0-0.8); Eosinophils # 0.1 10*3/uL (0.0-0.87); Hematocrit 22.8 VOL% (42.0-52.0); Hemoglobin 8.3 GM/DL (14.0-18.0); Immature Granulocytes % 0.9 %; Immature Granulocytes Absolute 0.11 #; Lymphocytes # 1.7 10*3/uL (1.4-4.0); Lymphocytes % 13.1 % (21.2-54.2); Mean Corpuscular HGB Conc 36.4 GM/DL (32-36); Mean Corpuscular Hemoglobin 29 PG (27-34); Mean Corpuscular Volume 80.9 FL (87-102); Mean Platelet Volume 9.5 FL (9.6-12.0); Monocytes % 15.5 % (1.7-12.7); Neutrophils % 69.3 % (38.7-73.9); Platelet Count 241 T/CUMM (130-400); Red Blood Count 2.82 MC/CUMM (3.8-5.5); Red Cell Distribution Width 13.3 % (9.3-17.3); White Blood Count 12.9 T/CUMM (4-12)
[2017-07-14 08:31] LABS: Bilirubin,Direct 0.14 MG/DL (0.0-0.20); Bilirubin,Indirect 0.3 MG/DL (0.0-1.0); Bilirubin,Total 0.4 MG/DL (0.2-1.0); Calcium 7.9 MG/DL (8.5-10.1); Magnesium 2.4 MG/DL (1.8-2.4); Potassium 3.6 MMOL/L (3.5-5.1); Total Protein 4.8 G/DL (6.4-8.3)
[2017-07-14] MEDS: levETIRAcetam 500 MG TABLET PO SCH (08:52)
[2017-07-14] MEDS: ENOXAPARIN 30 MG/0.3 ML SYRINGE SUBCUT SCH (08:54)
[2017-07-14] MEDS: PANTOPRAZOLE 40 MG VIAL IV SCH (08:54)
[2017-07-14 10:48] LABS: Hypochromasia 1+; Macrocytosis 1+; Target Cells Slight
[2017-07-14] MEDS ORDERED: ALTEPLASE 2 MG VIAL IV ONE (17:30)
[2017-07-14] MEDS: traZODone 50 MG TABLET PO SCH (20:28)
[2017-07-14] MEDS: PANTOPRAZOLE 40 MG TABLET PO SCH (20:28)
[2017-07-15] MEDS: ALBUTEROL/IPRATROPIUM 3 ML NEB RESP TX SCH ×4 (00:17→19:08)
[2017-07-15 06:49] LABS: Basophils % 0.4 % (0.0-0.8); Eosinophils # 0.1 10*3/uL (0.0-0.87); Eosinophils % 0.5 % (0.00-10.9); Hematocrit 22.1 VOL% (42.0-52.0); Immature Granulocytes % 0.7 %; Immature Granulocytes Absolute 0.08 #; Lymphocytes # 1.1 10*3/uL (1.4-4.0); Lymphocytes % 9.5 % (21.2-54.2); Mean Corpuscular HGB Conc 36.2 GM/DL (32-36); Mean Corpuscular Hemoglobin 30 PG (27-34); Mean Corpuscular Volume 81.5 FL (87-102); Mean Platelet Volume 9.4 FL (9.6-12.0); Neutrophils # 8.1 10*3/uL (1.4-7.4); Neutrophils % 70.9 % (38.7-73.9); Platelet Count 222 T/CUMM (130-400); Red Blood Count 2.71 MC/CUMM (3.8-5.5); Red Cell Distribution Width 13.2 % (9.3-17.3); White Blood Count 11.4 T/CUMM (4-12)
[2017-07-15 07:13] LABS: Alanine Aminotransferase 245 U/L (16-61); Albumin 2.1 G/DL (3.4-5.0); Alkaline Phosphatase 52 U/L (45-117); Aspartate Amino Transferase 91 U/L (0-37); Bilirubin,Direct < 0.100 MG/DL (0.0-0.20); Bilirubin,Indirect 0.3 MG/DL (0.0-1.0); Total Protein 4.9 G/DL (6.4-8.3)
[2017-07-15 07:42] LABS: Band Neutrophils 4 % (0-10); Eosinophils 2 % (0-10); Hypochromasia 1+; Lymphocytes 7 % (20-55); Platelet Estimate Adequate; Segmented Neutrophils 78 % (50-85); Total Cells Counted 100
[2017-07-15 08:00] LABS: Calcium 7.5 MG/DL (8.5-10.1); Osmolality,Calculated 282.2 MOS/KG (273-304); Potassium 3.7 MMOL/L (3.5-5.1)
[2017-07-15] MEDS: PANTOPRAZOLE 40 MG TABLET PO SCH ×2 (08:54→20:59)
[2017-07-15] MEDS: levETIRAcetam 500 MG TABLET PO SCH (08:54)
[2017-07-15] MEDS: ENOXAPARIN 30 MG/0.3 ML SYRINGE SUBCUT SCH (08:55)
[2017-07-15] MEDS ORDERED: DEXTROSE 5% NACL 0.45% 1,000 ML IV SCH (16:00)
[2017-07-15] MEDS: traZODone 50 MG TABLET PO SCH (20:59)
[2017-07-16] MEDS: ALBUTEROL/IPRATROPIUM 3 ML NEB RESP TX SCH ×4 (00:09→19:53)
[2017-07-16] MEDS: ENOXAPARIN 30 MG/0.3 ML SYRINGE SUBCUT SCH (10:06)
[2017-07-16] MEDS: PANTOPRAZOLE 40 MG TABLET PO SCH ×2 (10:07→20:37)
[2017-07-16] MEDS: levETIRAcetam 500 MG TABLET PO SCH (10:07)
[2017-07-16] MEDS: ACETAMINOPHEN 325 MG TABLET PO PRN (13:47)
[2017-07-16] MEDS ORDERED: EPOETIN ALFA 10,000 UNIT/1 ML VIAL SUBCUT ONE (14:37)
[2017-07-16 15:43] LABS: Calcium 7.5 MG/DL (8.5-10.1); Osmolality,Calculated 284.4 MOS/KG (273-304); Potassium 3.8 MMOL/L (3.5-5.1)
[2017-07-16] MEDS: traZODone 50 MG TABLET PO SCH (20:37)
[2017-07-17] MEDS: ALBUTEROL/IPRATROPIUM 3 ML NEB RESP TX SCH ×4 (01:30→20:10)
[2017-07-17 06:44] LABS: Calcium 7.6 MG/DL (8.5-10.1); Potassium 3.8 MMOL/L (3.5-5.1)
[2017-07-17] MEDS ORDERED: CLINDAMYCIN INJ 900 MG in PREMIX 1 EACH IV ONE (06:46)
[2017-07-17 06:47] LABS: Albumin 2.1 G/DL (3.4-5.0); Bilirubin,Total 0.5 MG/DL (0.2-1.0); Calcium 7.8 MG/DL (8.5-10.1); Phosphorous 5.5 MG/DL (2.5-4.9); Potassium 3.8 MMOL/L (3.5-5.1); Total Protein 5.3 G/DL (6.4-8.3)
[2017-07-17] MEDS: levETIRAcetam 500 MG TABLET PO SCH (08:40)
[2017-07-17] MEDS: PANTOPRAZOLE 40 MG TABLET PO SCH ×2 (08:40→22:32)
[2017-07-17 08:41] LABS: Basophils # 0.1 10*3/uL (0.0-0.2); Basophils % 0.3 % (0.0-0.8); Eosinophils # 0.2 10*3/uL (0.0-0.87); Eosinophils % 1.2 % (0.00-10.9); Hematocrit 23.9 VOL% (42.0-52.0); Hemoglobin 8.6 GM/DL (14.0-18.0); Immature Granulocytes % 0.6 %; Lymphocytes # 1.6 10*3/uL (1.4-4.0); Lymphocytes % 9.9 % (21.2-54.2); Mean Corpuscular Hemoglobin 29 PG (27-34); Mean Corpuscular Volume 81.3 FL (87-102); Mean Platelet Volume 9.1 FL (9.6-12.0); Monocytes # 1.7 10*3/uL (0.11-0.8); Monocytes % 10.7 % (1.7-12.7); Neutrophils # 12.4 10*3/uL (1.4-7.4); Neutrophils % 77.3 % (38.7-73.9); Red Blood Count 2.94 MC/CUMM (3.8-5.5); Red Cell Distribution Width 13.7 % (9.3-17.3)
[2017-07-17 08:42] LABS: White Blood Count 16.1 T/CUMM (4-12)
[2017-07-17 08:43] LABS: Platelet Count 290 T/CUMM (130-400)
[2017-07-17] MEDS ORDERED: TISSUE ADHESIVE 1 EACH APPLICATOR TOP ONE (11:10)
[2017-07-17] MEDS ORDERED: BUPIVACAINE 0.25% 50 ML VIAL ONE (11:10)
[2017-07-17] MEDS ORDERED: HEPARIN 5,000 UNIT/1 ML VIAL ONE (11:10)
[2017-07-17] MEDS: ENOXAPARIN 30 MG/0.3 ML SYRINGE SUBCUT SCH (11:25)
[2017-07-17] MEDS ORDERED: PROPOFOL 200 MG/20 ML VIAL IV ONE ×2 (11:42→12:34)
[2017-07-17] MEDS ORDERED: LIDOCAINE 100 MG/5 ML SYRINGE ONE (11:42)
[2017-07-17] MEDS: SODIUM CHLORIDE 0.9% 250 ML IV SCH (11:48)
[2017-07-17] MEDS ORDERED: SODIUM CHLORIDE 0.9% 100 ML IV ONE (12:35)
[2017-07-17] MEDS ORDERED: fentaNYL 100 MCG/2 ML VIAL ONE (12:35)
[2017-07-17] MEDS ORDERED: MIDAZOLAM 2 MG/2 ML VIAL ONE (12:35)
[2017-07-17] MEDS ORDERED: EPOETIN ALFA 2,000 UNIT/1 ML VIAL IV PRN (14:51)
[2017-07-17] MEDS: MORPHINE 2 MG/1 ML SYRINGE IV PRN (19:12)
[2017-07-17] MEDS: ONDANSETRON 4 MG/2 ML VIAL IV PRN (22:28)
[2017-07-17] MEDS: traZODone 50 MG TABLET PO SCH (22:32)
[2017-07-18] MEDS: ALBUTEROL/IPRATROPIUM 3 ML NEB RESP TX SCH ×4 (00:37→18:58)
[2017-07-18] MEDS: MORPHINE 2 MG/1 ML SYRINGE IV PRN ×3 (01:50→16:33)
[2017-07-18] MEDS: levETIRAcetam 500 MG TABLET PO SCH (09:19)
[2017-07-18] MEDS: PANTOPRAZOLE 40 MG TABLET PO SCH ×2 (09:20→21:02)
[2017-07-18] MEDS: ENOXAPARIN 30 MG/0.3 ML SYRINGE SUBCUT SCH (09:23)
[2017-07-18] MEDS ORDERED: TUBERCULIN SKIN TEST 0.1 ML SYRINGE INTRADERM ONE ×2 (14:50→16:09)
[2017-07-18] MEDS: SODIUM CHLORIDE 0.9% 250 ML IV SCH ×2 (16:41→16:42)
[2017-07-18] MEDS: traZODone 50 MG TABLET PO SCH (21:03)
[2017-07-19] MEDS: ACETAMINOPHEN 325 MG TABLET PO PRN (00:22)
[2017-07-19] MEDS: SODIUM CHLORIDE 0.9% 250 ML IV SCH (01:30)
[2017-07-19] MEDS: ALBUTEROL/IPRATROPIUM 3 ML NEB RESP TX SCH ×2 (02:54→07:02)
[2017-07-19 03:59] LABS: Apearance,Urine CLOUDY (Clear); Bacteria,Urine Few /HPF (Few); Bilirubin,Urine Negative (Negative); Blood, Urine Large mg/dL (Negative); Glucose,Urine (UA) Negative (Negative); Ketones,Urine Negative (Negative); Nitrite,Urine Negative (Negative); Protein,Urine 100 MG/DL; RBC,Urine 1308 /HPF (0-4); Squamous Epithelial Cell,Urine Occasional /HPF (0-10); Urine Color Yellow (Yellow); Urine Specific Gravity 1.008 (1.001-1.035); Urine Urobilinogen < 2.0 EU/DL (0.2-1.0); WBC,Urine 203 /HPF (0-6)
[2017-07-19 04:17] LABS: Barbiturates Screen,Urine Negative (Negative); Benzodiazepines Screen,Urine Negative (Negative); Cannabinoid Screen,Urine Negative (Negative); Opiate Screen,Urine Positive (Negative); Phencyclidine Screen,Urine Negative (Negative)
[2017-07-19] MEDS: levETIRAcetam 500 MG TABLET PO SCH (10:36)
[2017-07-19] MEDS: ENOXAPARIN 30 MG/0.3 ML SYRINGE SUBCUT SCH (10:37)
[2017-07-19] MEDS: PANTOPRAZOLE 40 MG TABLET PO SCH (10:37)
[2017-07-19 11:46] VITALS: BP 135/78
[2017-07-19] MEDS ORDERED: CEFUROXIME 250 MG TABLET PO SCH (12:30)
== END 2017-07-19 14:29 | disposition home or self-care (01) | DRG 870 ==
LOC: EDUNIT# → EDBD → N.ED 04:32 → N.CC 07:07 → SUATTDRO 07:07 → N.CC 08:00 → N.2E 07-09 11:35
PROVIDERS: ADMIT Internal Medicine; ATTEND Internal Medicine

== ENCOUNTER 2020-10-19 15:55 | Inpatient (IN) ==
[2020-10-19 16:32] LABS: Basophils # 0.1 10*3/uL (0.0-0.2); Basophils % 0.4 % (0.0-0.8); Eosinophils % 0.1 % (0.00-10.9); Hematocrit 46.9 VOL% (42.0-52.0); Hemoglobin 16.2 GM/DL (14.0-18.0); Immature Granulocytes % 0.4 %; Immature Granulocytes Absolute 0.06 #; Lymphocytes # 0.9 10*3/uL (1.4-4.0); Lymphocytes % 6.8 % (21.2-54.2); Mean Corpuscular HGB Conc 34.5 GM/DL (32-36); Mean Corpuscular Volume 83.6 FL (87-102); Mean Platelet Volume 11.2 FL (9.6-12.0); Monocytes % 3.3 % (1.7-12.7); Platelet Count 169 T/CUMM (130-400); Red Blood Count 5.61 MC/CUMM (3.8-5.5); Red Cell Distribution Width 13.7 % (9.3-17.3); White Blood Count 13.5 T/CUMM (4-12)
[2020-10-19] MEDS ORDERED: ALBUTEROL 2.5 MG/3 ML NEB RESP TX STA (16:39)
[2020-10-19] MEDS ORDERED: DEXAMETHASONE 4 MG/1 ML VIAL IV STA (16:39)
[2020-10-19] MEDS ORDERED: SODIUM CHLORIDE 0.9% 1,000 ML IV STA (16:39)
[2020-10-19] MEDS ORDERED: LORazepam 2 MG/1 ML VIAL IV STA (16:39)
[2020-10-19 17:04] LABS: Albumin 3.3 G/DL (3.4-5.0); Bilirubin,Total 0.9 MG/DL (0.2-1.0); Calcium 9.5 MG/DL (8.5-10.1); Potassium 4.2 MMOL/L (3.5-5.1); Total Protein 8.4 G/DL (6.4-8.3)
[2020-10-19] MEDS ORDERED: CLINDAMYCIN INJ 300 MG in SODIUM CHLORIDE 0.9% 100 ML IV STA (18:12)
[2020-10-19] MEDS ORDERED: cefTRIAXone 1,000 MG in SODIUM CHLORIDE 0.9% 100 ML IV STA (18:12)
[2020-10-19] MEDS ORDERED: CLINDAMYCIN INJ 300 MG in PREMIX 1 EACH IV ONE (18:30)
[2020-10-19] MEDS ORDERED: CLINDAMYCIN INJ 300 MG in PREMIX 1 EACH IV SCH (18:30)
[2020-10-19] MEDS ORDERED: HYDROmorphone 2 MG/1 ML VIAL IV PRN (18:36)
[2020-10-19] MEDS ORDERED: ONDANSETRON 4 MG/2 ML VIAL IV PRN (18:36)
[2020-10-19] MEDS: DEXTROSE 5% NACL 0.45% 1,000 ML IV SCH (20:37)
[2020-10-19] MEDS ORDERED: INFLUENZA VIRUS VACCINE 0.5 ML SYRINGE IM ONE (23:08)
[2020-10-19] MEDS: CLINDAMYCIN INJ 300 MG in PREMIX 1 EACH IV SCH (23:51)
[2020-10-20] MEDS: DEXTROSE 5% NACL 0.45% 1,000 ML IV SCH ×2 (04:06→19:24)
[2020-10-20] MEDS ORDERED: PHENYTOIN ER 100 MG CAPSULE PO SCH (09:30)
[2020-10-20] MEDS: PANTOPRAZOLE 40 MG TABLET PO SCH (09:53)
[2020-10-20] MEDS: CLINDAMYCIN INJ 300 MG in PREMIX 1 EACH IV SCH ×3 (09:54→20:24)
[2020-10-20 10:22] LABS: Basophils % 0.1 % (0.0-0.8); Hematocrit 42.7 VOL% (42.0-52.0); Hemoglobin 14.3 GM/DL (14.0-18.0); Immature Granulocytes % 0.6 %; Lymphocytes # 0.8 10*3/uL (1.4-4.0); Lymphocytes % 4.7 % (21.2-54.2); Mean Corpuscular HGB Conc 33.5 GM/DL (32-36); Mean Corpuscular Volume 86.6 FL (87-102); Mean Platelet Volume 10.9 FL (9.6-12.0); Monocytes % 4.5 % (1.7-12.7); Neutrophils % 90.1 % (38.7-73.9); Platelet Count 184 T/CUMM (130-400); Red Blood Count 4.93 MC/CUMM (3.8-5.5); White Blood Count 17.7 T/CUMM (4-12)
[2020-10-20 10:41] LABS: Lymphocytes 7 % (20-55); Platelet Estimate Adequate; Segmented Neutrophils 89 % (50-85); Total Cells Counted 100
[2020-10-20 10:58] LABS: Alanine Aminotransferase 33 U/L (16-61); Alkaline Phosphatase 77 U/L (45-117); Aspartate Amino Transferase 38 U/L (0-37); Blood Urea Nitrogen 15 MG/DL (7-18); Calcium 9.4 MG/DL (8.5-10.1); Carbon Dioxide 26 MMOL/L (21-32); Estimated Glom Filtration Rate 61 ML/MIN; Glucose 159 MG/DL (74-106); Osmolality,Calculated 278.7 MOS/KG (273-304); Potassium 4.3 MMOL/L (3.5-5.1); Sodium 138 MMOL/L (136-145); Troponin I < 0.015 NG/ML (0.00-0.045)
[2020-10-20] MEDS: levETIRAcetam 500 MG TABLET PO SCH ×2 (14:55→20:24)
[2020-10-21] MEDS: DEXTROSE 5% NACL 0.45% 1,000 ML IV SCH ×2 (04:02→12:55)
[2020-10-21] MEDS: PANTOPRAZOLE 40 MG TABLET PO SCH (09:02)
[2020-10-21] MEDS: CLINDAMYCIN INJ 300 MG in PREMIX 1 EACH IV SCH (09:02)
[2020-10-21] MEDS: levETIRAcetam 500 MG TABLET PO SCH (09:02)
[2020-10-21 11:59] VITALS: BP 111/73
== END 2020-10-21 14:23 | disposition home or self-care (01) | DRG 203 ==
LOC: N.ED 15:55 → N.EDINP 18:42 → N.TELEN 21:28
PROVIDERS: ADMIT Internal Medicine; ATTEND Internal Medicine

== ENCOUNTER 2020-10-26 16:01 | Inpatient (IN) ==
[2020-10-26] MEDS ORDERED: SODIUM CHLORIDE 0.9% 500 ML IV STA (19:29)
[2020-10-26] MEDS ORDERED: ONDANSETRON 4 MG/2 ML VIAL IV STA (19:29)
[2020-10-26] MEDS ORDERED: ALBUTEROL/IPRATROPIUM 3 ML NEB RESP TX STA (19:29)
[2020-10-26] MEDS ORDERED: KETOROLAC 30 MG/1 ML VIAL IV STA (19:29)
[2020-10-26] MEDS ORDERED: methylPREDNISolone SOD SUC 125 MG/2 ML VIAL IV STA (19:29)
[2020-10-26 20:21] LABS: Basophils % 0.1 % (0.0-0.8); Hematocrit 42.6 VOL% (42.0-52.0); Hemoglobin 14.3 GM/DL (14.0-18.0); Mean Corpuscular HGB Conc 33.6 GM/DL (32-36); Mean Corpuscular Volume 84.7 FL (87-102); Mean Platelet Volume 9.8 FL (9.6-12.0); Monocytes % 0.7 % (1.7-12.7); Neutrophils % 93.2 % (38.7-73.9); Platelet Count 519 T/CUMM (130-400); Red Blood Count 5.03 MC/CUMM (3.8-5.5); Red Cell Distribution Width 13.5 % (9.3-17.3); White Blood Count 20.8 T/CUMM (4-12)
[2020-10-26 20:35] LABS: INR 1.1; PT Patient Result 11.9 SECS (9.8-11.9)
[2020-10-26 20:41] LABS: Bilirubin,Urine Negative (Negative); Blood, Urine Negative (Negative); Glucose,Urine (UA) 50 mg/dL (Negative); Hyaline Casts,Urine 3 /LPF (0-3); Ketones,Urine Negative (Negative); Mucus,Urine Few /LPF (Occasional); Nitrite,Urine Negative (Negative); Protein,Urine Negative; Squamous Epithelial Cell,Urine Occasional /HPF (0-10); Urine Appearance CLEAR (Clear); Urine Color Yellow (Yellow); Urine Urobilinogen < 2.0 EU/DL (0.2-1.0)
[2020-10-26 20:48] LABS: Barbiturates Screen,Urine Negative (Negative); Benzodiazepines Screen,Urine Negative (Negative); Cannabinoid Screen,Urine Positive (Negative); Opiate Screen,Urine Negative (Negative); Phencyclidine Screen,Urine Negative (Negative)
[2020-10-26 20:48] LABS: Alanine Aminotransferase 101 U/L (16-61); Albumin 2.9 G/DL (3.4-5.0); Alkaline Phosphatase 67 U/L (45-117); Aspartate Amino Transferase 37 U/L (0-37); Bilirubin,Total < 0.39 MG/DL (0.2-1.0); Blood Urea Nitrogen 16 MG/DL (7-18); Calcium 9.2 MG/DL (8.5-10.1); Carbon Dioxide 20 MMOL/L (21-32); Estimated Glom Filtration Rate 73 ML/MIN; Glucose 235 MG/DL (74-106); Osmolality,Calculated 274.4 MOS/KG (273-304); Potassium 4.6 MMOL/L (3.5-5.1); Sodium 133 MMOL/L (136-145); Total Protein 8.5 G/DL (6.4-8.3); Troponin I < 0.015 NG/ML (0.00-0.045)
[2020-10-26 20:50] LABS: Ferritin 460.7 ng/ml (26-388)
[2020-10-26 20:52] LABS: Lymphocytes 4 % (20-55); Segmented Neutrophils 96 % (50-85); Total Cells Counted 100
[2020-10-26] MEDS ORDERED: AZITHROMYCIN INJ 500 MG in SODIUM CHLORIDE 0.9% 250 ML IV STA (22:56)
[2020-10-27] MEDS ORDERED: hydrALAZINE 20 MG/1 ML VIAL IV PRN (04:31)
[2020-10-27] MEDS ORDERED: DOCUSATE SODIUM 100 MG CAPSULE PO PRN (04:31)
[2020-10-27] MEDS ORDERED: ONDANSETRON 4 MG/2 ML VIAL IV PRN (04:31)
[2020-10-27] MEDS ORDERED: DEXTROSE 50% 25 GM/50 ML VIAL IV PRN (04:31)
[2020-10-27] MEDS ORDERED: ALBUTEROL/IPRATROPIUM 3 ML NEB RESP TX PRN (04:31)
[2020-10-27] MEDS ORDERED: GLUCAGON 1 MG VIAL IM PRN (04:31)
[2020-10-27] MEDS: LEVOFLOXACIN INJ 750 MG in PREMIX 1 EACH IV SCH (05:07)
[2020-10-27 05:39] LABS: Basophils % 0.1 % (0.0-0.8); Hematocrit 37.4 VOL% (42.0-52.0); Hemoglobin 12.9 GM/DL (14.0-18.0); Immature Granulocytes % 0.7 %; Immature Granulocytes Absolute 0.12 #; Lymphocytes # 1.1 10*3/uL (1.4-4.0); Lymphocytes % 5.7 % (21.2-54.2); Mean Corpuscular HGB Conc 34.5 GM/DL (32-36); Mean Platelet Volume 9.9 FL (9.6-12.0); Monocytes % 0.7 % (1.7-12.7); Neutrophils % 92.8 % (38.7-73.9); Platelet Count 461 T/CUMM (130-400); Red Cell Distribution Width 13.3 % (9.3-17.3); White Blood Count 18.3 T/CUMM (4-12)
[2020-10-27 06:09] LABS: Albumin 2.5 G/DL (3.4-5.0); Bilirubin,Total 0.7 MG/DL (0.2-1.0); Calcium 8.8 MG/DL (8.5-10.1); Hypochromasia Slight; Lymphocytes 9 % (20-55); Osmolality,Calculated 278.2 MOS/KG (273-304); Platelet Estimate Increased; Potassium 5.3 MMOL/L (3.5-5.1); Segmented Neutrophils 91 % (50-85); Total Cells Counted 100; Total Protein 7.5 G/DL (6.4-8.3)
[2020-10-27] MEDS: INSULIN LISPRO 100 UNIT/ML SUBCUT SCH ×4 (10:29→21:17)
[2020-10-27] MEDS: ENOXAPARIN 40 MG/0.4 ML SYRINGE SUBCUT SCH (10:29)
[2020-10-27] MEDS: methylPREDNISolone SOD SUC 40 MG/1 ML VIAL IV SCH (16:36)
[2020-10-28] MEDS: ACETAMINOPHEN 325 MG TABLET PO PRN ×2 (02:26→20:37)
[2020-10-28] MEDS: methylPREDNISolone SOD SUC 40 MG/1 ML VIAL IV SCH ×2 (04:22→16:18)
[2020-10-28] MEDS: LEVOFLOXACIN INJ 750 MG in PREMIX 1 EACH IV SCH (04:47)
[2020-10-28 05:46] LABS: Basophils % 0.1 % (0.0-0.8); Hematocrit 39.8 VOL% (42.0-52.0); Hemoglobin 13.6 GM/DL (14.0-18.0); Immature Granulocytes % 0.5 %; Lymphocytes # 2.4 10*3/uL (1.4-4.0); Lymphocytes % 11.4 % (21.2-54.2); Mean Corpuscular HGB Conc 34.2 GM/DL (32-36); Mean Corpuscular Volume 84.3 FL (87-102); Mean Platelet Volume 9.7 FL (9.6-12.0); Monocytes % 3.7 % (1.7-12.7); Neutrophils % 84.3 % (38.7-73.9); Platelet Count 523 T/CUMM (130-400); Red Blood Count 4.72 MC/CUMM (3.8-5.5); Red Cell Distribution Width 13.3 % (9.3-17.3)
[2020-10-28 06:07] LABS: Platelet Estimate Increased
[2020-10-28 06:24] LABS: Alanine Aminotransferase 91 U/L (16-61); Albumin 2.7 G/DL (3.4-5.0); Alkaline Phosphatase 64 U/L (45-117); Aspartate Amino Transferase 30 U/L (0-37); Bilirubin,Total < 0.39 MG/DL (0.2-1.0); Blood Urea Nitrogen 18 MG/DL (7-18); Calcium 9.5 MG/DL (8.5-10.1); Carbon Dioxide 26 MMOL/L (21-32); Estimated Glom Filtration Rate 73 ML/MIN; Glucose 115 MG/DL (74-106); Osmolality,Calculated 268.4 MOS/KG (273-304); Potassium 4.4 MMOL/L (3.5-5.1); Sodium 133 MMOL/L (136-145); Total Protein 7.7 G/DL (6.4-8.3)
[2020-10-28] MEDS: INSULIN LISPRO 100 UNIT/ML SUBCUT SCH ×4 (08:01→21:46)
[2020-10-28 08:24] LABS: HIV Antigen/Antibody Result Nonreactive (Nonreactive)
[2020-10-28] MEDS: ENOXAPARIN 40 MG/0.4 ML SYRINGE SUBCUT SCH ×2 (08:54→18:55)
[2020-10-28] MEDS: AZITHROMYCIN INJ 500 MG in SODIUM CHLORIDE 0.9% 250 ML IV SCH (08:54)
[2020-10-29] MEDS: LEVOFLOXACIN INJ 750 MG in PREMIX 1 EACH IV SCH (04:02)
[2020-10-29] MEDS: methylPREDNISolone SOD SUC 40 MG/1 ML VIAL IV SCH ×2 (04:03→16:25)
[2020-10-29] MEDS: AZITHROMYCIN INJ 500 MG in SODIUM CHLORIDE 0.9% 250 ML IV SCH (08:30)
[2020-10-29] MEDS: ENOXAPARIN 40 MG/0.4 ML SYRINGE SUBCUT SCH (08:30)
[2020-10-29] MEDS: INSULIN LISPRO 100 UNIT/ML SUBCUT SCH ×5 (09:23→20:40)
[2020-10-29] MEDS: levETIRAcetam 500 MG TABLET PO SCH ×2 (09:26→20:40)
[2020-10-29 13:07] LABS: QuantiFERON-Tb Gold Pl Negative (Negative); TB2 Ag Minus Result -0.01 IU/mL
[2020-10-29] MEDS ORDERED: BENZONATATE 100 MG CAPSULE PO PRN (16:17)
[2020-10-29] MEDS ORDERED: guaiFENesin 200 MG/10 ML UDCUP PO PRN (18:09)
[2020-10-30] MEDS: LEVOFLOXACIN INJ 750 MG in PREMIX 1 EACH IV SCH (04:30)
[2020-10-30] MEDS: methylPREDNISolone SOD SUC 40 MG/1 ML VIAL IV SCH (05:05)
[2020-10-30 06:19] LABS: Basophils % 0.1 % (0.0-0.8); Hemoglobin 13.6 GM/DL (14.0-18.0); Immature Granulocytes % 0.4 %; Immature Granulocytes Absolute 0.08 #; Lymphocytes # 2.9 10*3/uL (1.4-4.0); Lymphocytes % 13.8 % (21.2-54.2); Mean Corpuscular HGB Conc 34.9 GM/DL (32-36); Mean Corpuscular Volume 83.2 FL (87-102); Mean Platelet Volume 9.7 FL (9.6-12.0); Monocytes % 5.1 % (1.7-12.7); Neutrophils % 80.6 % (38.7-73.9); Platelet Count 536 T/CUMM (130-400); Red Blood Count 4.69 MC/CUMM (3.8-5.5); Red Cell Distribution Width 13.3 % (9.3-17.3); White Blood Count 20.8 T/CUMM (4-12)
[2020-10-30 06:52] LABS: Calcium 9.3 MG/DL (8.5-10.1); Osmolality,Calculated 272.1 MOS/KG (273-304)
[2020-10-30] MEDS: INSULIN LISPRO 100 UNIT/ML SUBCUT SCH ×2 (08:01→11:19)
[2020-10-30] MEDS: ENOXAPARIN 40 MG/0.4 ML SYRINGE SUBCUT SCH (08:39)
[2020-10-30] MEDS: levETIRAcetam 500 MG TABLET PO SCH (08:39)
[2020-10-30] MEDS: AZITHROMYCIN INJ 500 MG in SODIUM CHLORIDE 0.9% 250 ML IV SCH (08:39)
[2020-10-30 09:26] LABS: Lymphocytes 5 % (20-55); Platelet Estimate Increased; Polychromasia Slight; Segmented Neutrophils 88 % (50-85); Total Cells Counted 100
[2020-10-30 09:27] LABS: Hypochromasia 1+; Target Cells Few
[2020-10-30 11:07] VITALS: BP 124/80
== END 2020-10-30 12:44 | disposition home or self-care (01) | DRG 139 ==
LOC: N.ED 16:01 → N.EDINP 10-27 03:00 → N.2E 10-27 07:31
PROVIDERS: ADMIT Internal Medicine; ATTEND Internal Medicine